=== PATIENT | male | born 1995 | race Caucasian/White ===

== ENCOUNTER 2022-09-03 22:22 | Emergency (ER) | payer SELFPAY ==
[2022-09-03 23:50] LABS: Absolute Lymphocytes (CBC) 3.2 K/uL (0.7-4.9); Hematocrit 42.7 % (39.6-49.0); Lymphocytes % 40.2 % (15.3-44.8); MCV 88.3 fL (80-100); MPV 8.2 fL (7.6-11.3); RBC Red Blood Cell Count 4.83 M/uL (4.33-5.43)
[2022-09-04 00:07] LABS: Albumin 4.2 g/dL (3.4-5.0); Bilirubin Direct 0.1 mg/dL (0-0.2); Bilirubin Total 0.4 mg/dL (0.2-1.0); Magnesium 2.5 mg/dL (1.6-2.4); Potassium 3.3 mmol/L (3.5-5.1); Protein, Total 7.3 g/dL (6.4-8.2); Troponin High Sensitivity 4.5 pg/mL (<58.9)
--- NOTE | 2022-09-04 02:41 | EDPHYS ---
Physician Documentation [facility] Name: Austin Ivey Age: 26 yrs Sex: Male : 1995 Arrival Date: 09/03/2022 Time: 22:25 Bed 7 Private MD: ED Physician Amos Kenney HPI: 09/03 23:00 This 26 yrs old Male presents to ER via Ambulatory with complaints of Left Lower Chest cp Pain. 23:00 The patient or guardian reports chest pain that is located primarily in the left lower cp chest. The pain does not radiate. Duration: The patient or guardian reports a single episode, that is still ongoing, onset 3 weeks ago and was improving until he sneezed tonight and pain became worse. Modifying factors: the symptoms are aggravated by deep breath, movement, palpation of area. Severity of pain: in the emergency department the pain is unchanged despite home interventions. 23:00 Patient denies injury to chest and/or abdomen and reports pcp ordered xrays that were cp negative for fracture. Historical: - Allergies: 23:12 PENICILLINS; pf1 - Immunization history:: Adult Immunizations not up to date. - Social history:: Smoking status: Patient denies any tobacco usage or history of. ROS: 23:05 Constitutional: Negative for body aches, chills, fever, poor PO intake. cp 23:05 Eyes: Negative for injury, pain, redness, and discharge. cp 23:05 ENT: Negative for drainage from ear(s), ear pain, sore throat, difficulty swallowing, difficulty handling secretions. 23:05 Cardiovascular: Negative for edema, palpitations. 23:05 Respiratory: Negative for cough, shortness of breath, wheezing. 23:05 Abdomen/GI: Negative for vomiting, diarrhea, constipation. 23:05 : Negative for urinary symptoms, hematuria, testicular pain 23:05 MS/extremity: Positive for pain, of the left lower lateral chest and rib area, Negative for injury or acute deformity. 23:05 Neuro: Negative for altered mental status, headache, numbness, syncope, weakness. 23:05 All other systems are negative. Exam: 23:10 Constitutional: The patient appears in no acute distress, alert, awake, cp non-diaphoretic, non-toxic, well developed, well nourished, uncomfortable. 23:10 Head/Face: Normocephalic, atraumatic. cp 23:10 Eyes: Periorbital structures: appear normal, Conjunctiva: normal, no exudate, no injection, Sclera: no appreciated abnormality, Lids and lashes: appear normal, bilaterally. 23:10 ENT: External ear(s): are unremarkable, Nose: is normal, Mouth: Lips: moist, Oral mucosa: moist, Posterior pharynx: Airway: no evidence of obstruction, patent. 23:10 Neck: ROM/movement: is normal, is supple, without pain, no range of motions limitations. 23:10 Chest/axilla: Inspection: normal, Palpation: crepitus, is not appreciated, tenderness, that is moderate, of the left lower lateral and anterior rib area. 23:10 Cardiovascular: Rate: normal, Rhythm: regular, Edema: is not appreciated, JVD: is not appreciated. 23:10 Respiratory: the patient does not display signs of respiratory distress, Respirations: normal, no use of accessory muscles, no retractions, labored breathing, is not present, Breath sounds: are clear throughout, no decreased breath sounds, no stridor, no wheezing. 23:10 Abdomen/GI: Inspection: abdomen appears normal, Bowel sounds: active, all quadrants, Palpation: soft, in all quadrants, nontender, in all quadrants, rebound tenderness, is not appreciated. 23:10 Back: pain, is absent, ROM is normal. 23:10 Skin: no rash present. 23:40 ECG was reviewed by the Attending Physician. cp Vital Signs: 23:08 BP 139 / 81; Pulse 75; Resp 18; Temp 98.8; Pulse Ox 100% on R/A; Weight 69.4 kg; Height pf1 5 ft. 9 in. (175.26 cm); Pain 7/10; 09/04 00:48 BP 123 / 67; Pulse 74; Resp 23; Pulse Ox 97% on R/A; jb4 01:44 BP 120 / 69; Pulse 69; Resp 20; Pulse Ox 97% on R/A; jb4 09/03 23:08 Body Mass Index 22.59 (69.40 kg, 175.26 cm) pf1 MDM: 09/03 23:16 Patient medically screened. cp 09/04 00:00 Differential diagnosis: abnormal EKG, acute myocardial infarction, acute pericarditis, cp chest wall pain, costochondritis, pleurisy, pneumonia, pneumothorax, pulmonary embolus. 02:40 Data reviewed: vital signs, nurses notes, lab test result(s), EKG, radiologic studies, cp plain films. 02:40 Consideration of Admission/Observation Escalation of care including cp admission/observation considered. Test considered but Not performed: CT: chest, abdomen/pelvis. 09/03 22:57 Order name: Urine Microscopic Only cp 09/03 23:20 Order name: Basic Metabolic Panel cp 09/03 23:20 Order name: CBC with Diff cp 09/03 23:20 Order name: D-Dimer cp 09/03 23:20 Order name: LFT's cp 09/03 23:20 Order name: Magnesium cp 09/03 23:20 Order name: Troponin HS cp 09/03 23:20 Order name: Lipase cp 09/03 23:50 Order name: CBC with Automated Diff; Complete Time: 01:17 EDMS 09/04 01:18 Interpretation: Reviewed. 09/03 23:54 Order name: D-Dimer; Complete Time: 01:17 EDMS 09/04 01:18 Interpretation: D-DIMER < 215; Reviewed. cp 09/04 00:07 Order name: Basic Metabolic Panel; Complete Time: 01:17 EDMS 09/04 01:17 Interpretation: Normal except: K 3.3. cp 09/04 00:07 Order name: Liver (Hepatic) Function; Complete Time: 01:17 EDMS 09/04 01:18 Interpretation: Reviewed. cp 09/04 00:07 Order name: Troponin High Sensitivity; Complete Time: 01:17 EDMS 09/04 01:18 Interpretation: Troponin HS 4.5; Reviewed. cp 09/04 00:07 Order name: Magnesium; Complete Time: 01:17 EDMS 09/04 01:17 Interpretation: MG 2.5; Reviewed. cp 09/03 23:20 Order name: XRAY Chest (1 view) cp 09/03 23:20 Order name: EKG; Complete Time: 23:21 cp 09/03 23:20 Order name: Cardiac monitoring; Complete Time: 23:40 cp 09/03 23:20 Order name: EKG - Nurse/Tech; Complete Time: 23:40 cp 09/03 23:20 Order name: IV Saline Lock; Complete Time: 23:40 cp 09/03 23:20 Order name: Labs collected and sent; Complete Time: 23:40 cp 09/03 23:20 Order name: O2 Per Protocol; Complete Time: 23:40 cp 09/03 23:20 Order name: O2 Sat Monitoring; Complete Time: 23:40 cp 09/04 00:07 Order name: Lipase; Complete Time: 01:17 EDMS 09/04 01:18 Interpretation: LIP 115; Reviewed. cp 09/04 01:19 Order name: XRAY Ribs LEFT cp EC/21 23:40 Rate is 66 beats/min. Rhythm is regular. NV interval is normal. QRS interval is normal. cp QT interval is normal. T waves are Inverted in lead aVR. Interpreted by me. Reviewed by me. Administered Medications: No medications were administered Disposition: 09/04 04:36 Co-signature as Attending Physician, Amos Kenney MD I agree with the assessment and kdr plan of care. Disposition Summary: 09/04/22 02:40 Discharge Ordered Location: Home cp Problem: new cp Symptoms: have improved cp Condition: Stable cp Diagnosis - Chest pain, unspecified cp Followup: cp - With: Private Physician - When: 2 - 3 days - Reason: Recheck today's complaints Discharge Instructions: - Discharge Summary Sheet cp - Nonspecific Chest Pain, Adult cp Forms: - Medication Reconciliation Form cp - Thank You Letter cp - Antibiotic Education cp - Prescription Opioid Use cp Prescriptions: - Ibuprofen 800 mg Oral Tablet - take 1 tablet by ORAL route every 8 hours As needed take with food; 30 tablet; cp Refills: 0, Product Selection Permitted - Cyclobenzaprine 10 mg Oral Tablet - take 1 tablet by ORAL route every 8 hours As needed; 20 tablet; Refills: 0, cp Product Selection Permitted Signatures: Dispatcher [employer] EDNM Amos Kenney MD MD kdr Page, Corey, PA PA cp Wood, Tiffany tw5 Barbara hsieh RN RN pf1 Corrections: (The following items were deleted from the chart) 09/05 02:07 09/04 23:00 This 26 yrs old Male presents to ER via Ambulatory with complaints of Flank cp Pain. cp 09/05 02:12 09/04 23:00 This 26 yrs old Male presents to ER via Ambulatory with complaints of Left cp Lower Chest Pain. cp 09/05 02:12 09/04 23:00 The patient or guardian reports chest pain that is located primarily in the cp left lower chest, cp 09/05 02:09/04 23:00 The pain does not radiate. cp cp 09/05 01:09/04 23:00 Duration: The patient or guardian reports a single episode, that is still cp ongoing, onset 3 weeks ago and was improving until he sneezed tonight and pain became worse, cp 09/05 01:09/04 23:00 Modifying factors: the symptoms are aggravated by deep breath, movement, cp palpation of area, cp 09/05 01:09/04 23:00 Severity of pain: in the emergency department the pain is unchanged despite cp home interventions, cp
--- NOTE | 2022-09-04 02:41 | ER ---
Nurse's Notes [facility] Name: Austin Ivey Age: 26 yrs Sex: Male : 1995 Arrival Date: 09/03/2022 Time: 22:25 Bed 7 Private MD: Diagnosis: Chest pain, unspecified Presentation: 09/03 23:08 Chief complaint: Patient states: Left lower rib cage pain of 7, onset 3 weeks ago,worse pf1 tonight 45 minutes ago after sneezing and felt a pop. Patient stated had a green productive cough for 2 weeks that resolved 1 week ago. Patient stated was seen at an urgent care clinic, had an X-ray and was negative. Coronavirus screen: Vaccine status: Patient reports being unvaccinated. Client denies travel out of the [place] in the last 14 days. At this time, the client does not indicate any symptoms associated with coronavirus-19. Ebola Screen: Patient negative for fever greater than or equal to 101.5 degrees Fahrenheit, and additional compatible Ebola Virus Disease symptoms. Initial Sepsis Screen: Does the patient meet any 2 criteria? No. Patient's initial sepsis screen is negative. Does the patient have a suspected source of infection? No. Patient's initial sepsis screen is negative. Risk Assessment: Do you want to hurt yourself or someone else? Patient reports no desire to harm self or others. 23:08 Method Of Arrival: Ambulatory pf1 23:34 Acuity: ARNULFO 3 pf1 Historical: - Allergies: 23:12 PENICILLINS; pf1 - Immunization history:: Adult Immunizations not up to date. - Social history:: Smoking status: Patient denies any tobacco usage or history of. Screenin:36 [facility] ED Fall Risk Assessment (Adult) History of falling in the last 3 months, tw5 including since admission No falls in past 3 months (0 pts). Abuse screen: Denies threats or abuse. Denies injuries from another. Nutritional screening: No deficits noted. Tuberculosis screening: No symptoms or risk factors identified. Assessment: 23:36 General: Appears uncomfortable, Behavior is calm, cooperative, appropriate for age. tw5 General: Reports "I felt a pop in my side and since then it has been hurting. I went to the urgent care over by [facility] and they took an chest x-ray but they didn't see anything.". Pain: Complains of pain in left lateral anterior chest Pain currently is 7 out of 10 on a pain scale. Pain: Aggravated by increased activity. Neuro: Level of Consciousness is awake, alert, obeys commands, Oriented to person, place, time, situation. Respiratory: Airway is patent Trachea midline Respiratory effort is even, unlabored. 09/04 00:30 Reassessment: Patient appears in no apparent distress at this time. Patient and/or jb4 family updated on plan of care and expected duration. Pain level reassessed. Patient is alert, oriented x 3, equal unlabored respirations, skin warm/dry/pink. 01:40 Reassessment: Patient appears in no apparent distress at this time. Patient and/or jb4 family updated on plan of care and expected duration. Pain level reassessed. Patient is alert, oriented x 3, equal unlabored respirations, skin warm/dry/pink. 02:51 General: Appears in no apparent distress. Behavior is calm, cooperative, appropriate tw5 for age. Vital Signs: 09/03 23:08 BP 139 / 81; Pulse 75; Resp 18; Temp 98.8; Pulse Ox 100% on R/A; Weight 69.4 kg; Height pf1 5 ft. 9 in. (175.26 cm); Pain 7/10; 09/04 00:48 BP 123 / 67; Pulse 74; Resp 23; Pulse Ox 97% on R/A; jb4 01:44 BP 120 / 69; Pulse 69; Resp 20; Pulse Ox 97% on R/A; jb4 09/03 23:08 Body Mass Index 22.59 (69.40 kg, 175.26 cm) pf1 ED Course: 09/03 22:25 Patient arrived in ED. ja2 22:40 Telly Davidson PA is PHCP. cp 22:40 Amos Kenney MD is Attending Physician. cp 23:12 Triage completed. pf1 23:20 Yin Lopes is Primary Nurse. tw5 23:36 Patient has correct armband on for positive identification. Bed in low position. Call tw5 light in reach. Side rails up X 1. Client placed on continuous cardiac and pulse oximetry monitoring. NIBP monitoring applied. Door closed. Noise minimized. Moved to private room. Warm blanket given. Verbal reassurance given. 23:36 Initial lab(s) drawn, by me, sent to lab. Inserted saline lock: 20 gauge in left tw5 antecubital area, using aseptic technique. Blood collected. 23:40 Lipase Sent. tw 23:40 Basic Metabolic Panel Sent. 23:40 CBC with Diff Sent. 23:40 Troponin HS Sent. 23:40 Magnesium Sent. :40 LFT's Sent. :40 D-Dimer Sent. 09/04 02:51 No provider procedures requiring assistance completed. IV discontinued, intact, tw bleeding controlled, No redness/swelling at site. Pressure dressing applied. Administered Medications: No medications were administered Medication: 09/03 23:36 VIS not applicable for this client. Outcome: 09/04 02:40 Discharge ordered by . cp 02:51 Discharged to home ambulatory. 02:51 Condition: good 02:51 Discharge instructions given to patient, Instructed on discharge instructions, follow up and referral plans. Demonstrated understanding of instructions, follow-up care, medications, Prescriptions given X 2. 02:52 Patient left the ED. Signatures: Telly Davidson, ROLAND PA cp Nehemiah Turner, RN RN jb4 Dee Alvarez Tiffany tw5 Barbara hsieh, RN RN pf1 Corrections: (The following items were deleted from the chart) 09/03 23:34 23:08 Acuity: ARNULFO 4 pf1 pf1
[2022-09-04 03:23] VITALS: TEMP 98.8
[2022-09-04 03:24] VITALS: O2SAT 97
[2022-09-04 03:25] VITALS: BP 120/69
--- NOTE | 2022-09-04 14:08 | RAD REPORT ---
EXAM DESCRIPTION: RAD - Ribs Left - 09/04/2022 1:59 am CLINICAL HISTORY: Pain COMPARISON: Chest 1 View AP 09/03/2022 TECHNIQUE: Left Ribs 2 Views FINDINGS: No fracture is seen. No significant sclerotic/lytic bone lesion. Heart and visualized lungs appear unremarkable. No left pleural effusion or pneumothorax. IMPRESSION: Normal left ribs radiographs. Electronically signed by: Miki Stone MD 09/04/2022 2:11 AM NUCLEAR WEAPONS MECHANICAL SPECIALIST Due to temporary technical issues with the PACS/Fluency reporting system, reports are being signed by the in house radiologists without review as a courtesy to insure prompt reporting. The interpreting radiologist is fully responsible for the content of the report.
--- NOTE | 2022-09-04 14:21 | RAD REPORT ---
EXAM DESCRIPTION: RAD - Chest Single View - 09/03/2022 11:44 pm CLINICAL HISTORY: CHEST PAIN TECHNIQUE: Frontal view of the chest. COMPARISON: No relevant prior studies available. FINDINGS: Lungs: Unremarkable. No consolidation. Pleural space: Unremarkable. No pneumothorax. Heart: Unremarkable. No cardiomegaly. Mediastinum: Unremarkable. Bones/joints: Unremarkable. IMPRESSION: No acute disease. Electronically signed by: Carrington Almodovar MD 09/03/2022 11:49 PM WAIST FITTER Due to temporary technical issues with the PACS/Fluency reporting system, reports are being signed by the in house radiologists without review as a courtesy to insure prompt reporting. The interpreting radiologist is fully responsible for the content of the report.
--- NOTE | 2022-09-04 15:21 | EKG ---
Test Date: 2022-09-03 Test Time: 23:35:18 Electrical Research Engineer: SOLIS MEASUREMENT RESULTS: Intervals: Rate: 66 MD: 134 QRSD: 94 QT: 386 QTc: 404 Amado: P: 68 MD: 134 QRS: 69 T: 56 INTERPRETIVE STATEMENTS: Normal sinus rhythm Normal ECG No previous ECG available for comparison Electronically Signed On 09-04-22 15:19:20 DIRECTOR OF STUDENT LIFE by Derrek Rosario
== END 2022-09-04 02:52 | disposition home or self-care (01) ==
LOC: ER 22:22
DX: R07.9 Chest pain, unspecified (principal)
CPT/HCPCS: 36415; 71045; 80048; 80076; 83690; 83735; 84484; 85025; 85379; 93005; 99283